=== PATIENT | female | born 1980 | race Hispanic/Latino ===

== ENCOUNTER 2018-09-21 19:21 | Inpatient (IN) | payer BC ==
[~2018-09-21] VITALS: Ht 165.1 cm; Wt 83.8 kg
[~2018-09-21 19:21] MED LIST: AMOXICILLIN/CL875 MG PO; BACTRIM DS1 TAB PO; BENZONATATE200 MG PO; CIPROFLOXACN500 MG PO; CLARITIN10 M1 PO; DEPO-MEDROL80 MG/ML IM; FLEXERIL PO; FLONASE NASAL50 MCG; NAPROSYN500 MG PO; NEOMYCIN/POLYMYXIN/G AS; [UNRECOGNIZED DRUG - OTHER]; [UNRECOGNIZED DRUG - OTHER]
[2018-09-21 20:39] LABS: IMMATURE GRANULOCYTES 0.6 % (0.0-5.0); MEAN CELL VOLUME 86.3 fL CALC (80.0-100.0); MEAN CORPUSCULAR HGB 31.9 pG CALC (26.0-32.0); MEAN CORPUSCULAR HGB CONC 36.9 g/L CALC (32.0-36.0); NEUT# 20.11 thou/uL (2.00-7.15); RED BLOOD COUNT 5.49 mill/uL (4.20-5.60); RED CELL DISTRI WIDTH 13.2 % (11.5-15.5)
[2018-09-21 20:40] LABS: HEMATOCRIT 47.4 % (37.0-47.0); HEMOGLOBIN 17.5 g/dl (12.0-16.0)
[2018-09-21 20:53] LABS: ALBUMIN 4.3 g/dL (3.2-5.0); ALKALINE PHOSPHATASE 74 u/l (38-126); BILIRUBIN, TOTAL 1.1 mg/dL (0.0-1.4); BUN 15 mg/dL (7-17); BUN/CREATININE RATIO 15 (12-20 (CALC)); CARBON DIOXIDE 18 mmol/l (22-30); CHLORIDE 102 mmol/l (95-108); GFR > 60 ML/MIN (>=60 (CALC)); GFR FOR AFR.AMER. > 60 ML/MIN (>=60 (CALC)); SGOT/AST 71 u/l (14-36); SODIUM 136 mmol/l (137-146)
[2018-09-21 21:01] LABS: ANION GAP 21 (6-22 (CALC)); POTASSIUM 5.1 mmol/l (3.5-5.1)
[2018-09-21 21:02] LABS: AMYLASE 1014 u/l (30-110); LIPASE 8009 u/l (23-300)
[2018-09-21] MEDS ORDERED: ZOFRAN ODT4 MG PO (21:31)
[2018-09-21] MEDS ORDERED: CIPROFLOXACN500 MG PO (21:32)
[2018-09-21 22:48] LABS: URINE BILIRUBIN - DIPSTICK NEGATIVE (NEGATIVE); URINE BLOOD DIPSTICK SMALL (NEGATIVE); URINE COLOR YELLOW; URINE GLUCOSE - DIPSTICK NEGATIVE (NEGATIVE); URINE KETONE NEGATIVE (NEGATIVE); URINE LEUK ESTERASE NEGATIVE (NEGATIVE); URINE NITRITE - DIPSTICK NEGATIVE (Negative); URINE PH 5.5 (4.5-8.0); URINE PROTEIN - DIPSTICK 30 mg/dL (NEG-TRACE); URINE SPECIFIC GRAVITY <=1.005; URINE UROBILINOGEN - DIPSTICK 0.2 E.U./dL (0.2)
[2018-09-21 23:05] VITALS: BP 112/70
[2018-09-21 23:12] LABS: URINE AMORPH SEDIMENT MODERATE hpf (NONE-FEW); URINE HYALINE CAST FEW lpf (NONE-RARE); URINE MUCUS FEW hpf (NONE-FEW); URINE SQUAMOUS EPITHELIAL CELL MODERATE EPI/hpf (0-FEW)
[2018-09-22] VITALS (11 sets, daily range): BP systolic 94–126; BP diastolic 60–79
[2018-09-22 05:56] LABS: ALKALINE PHOSPHATASE 53 u/l (38-126); BILIRUBIN, TOTAL 0.6 mg/dL (0.0-1.4); BUN 20 mg/dL (7-17); BUN/CREATININE RATIO 23 (12-20 (CALC)); CARBON DIOXIDE 18 mmol/l (22-30); CHLORIDE 107 mmol/l (95-108); CREATININE 0.9 mg/dL (0.5-1.0); GFR > 60 ML/MIN (>=60 (CALC)); GFR FOR AFR.AMER. > 60 ML/MIN (>=60 (CALC)); SGOT/AST 41 u/l (14-36); SODIUM 134 mmol/l (137-146)
[2018-09-22 06:14] LABS: ANION GAP 15 (6-22 (CALC)); POTASSIUM 5.7 mmol/l (3.5-5.1)
[2018-09-22 06:15] LABS: ALBUMIN 2.9 g/dL (3.2-5.0)
[2018-09-22 12:50] LABS: AMYLASE 577 u/l (30-110)
[2018-09-22 12:59] LABS: LIPASE 3500 u/l (23-300)
== END 2018-09-22 15:38 | disposition short-term general hospital (02) | DRG 439 ==
LOC: ED 19:21 → ED-I 22:00 → ED 22:55 → MS2 22:56 → ICU 22:56
PROVIDERS: Family Medicine; Internal Medicine Nephrology; ADMIT Internal Medicine; ATTEND Internal Medicine
PROC: 02HV33Z Insertion of Infusion Device into Superior Vena Cava, Percutaneous Approach (ICD-10-PCS; principal; 2018-09-22)
DX: K85.90 Acute pancreatitis without necrosis or infection, unspecified (principal); E87.2 Acidosis; E83.51 Hypocalcemia; E87.5 Hyperkalemia; I95.9 Hypotension, unspecified
CPT/HCPCS: J1650; Q9967; S0164